=== PATIENT | male | born 1985 | race American Indian/Alaskan Native ===

== ENCOUNTER 2016-05-06 13:20 | Emergency (ER) | payer BC ==
[2016-05-06 13:54] VITALS: BP 105/68
[2016-05-06] MEDS ORDERED: BOOSTRIX IM ONE (14:53)
[2016-05-06] MEDS ORDERED: BACTRIM DS PO ONE (14:54)
[2016-05-06] MEDS ORDERED: KEFLEX PO ONE (14:54)
[2016-05-06] MEDS ORDERED: NORCO 5/325 PO ONE (14:54)
[2016-05-06] MEDS ORDERED: TRIPLE ANTIBIOTIC TP ONE (14:54)
--- NOTE | 2016-05-06 14:58 | Emergency Department Report ---
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 pt states he was cut by metal. PT states his finger has not stopped bleeding. PT also c/o increase in pain and swelling. MD Complaint: other (finger injury ) Onset/Timin -: Sudden, days(s) Time: 20:00 Location: right (index finger ) -: Yes arthralgia, No fever Severity scale (0 -10): 10 Quality: sharp, constant Worsens with: palpation, other (movement) Associated Symptoms: denies other symptoms - Related Data Allergies Allergy/AdvReac Type Severity Reaction Status Date / Time No Known Allergies Allergy Unverified 05/06/16 13:48 ED Review of Systems ROS: Stated complaint: FINGER LAC Other details as noted in HPI Comment: All other systems reviewed and negative Musculoskeletal: as per HPI, joint swelling Skin: as per HPI, change in color (erythema ), other (laceration ) ED Past Medical Hx - Past Medical History Hx Hypertension: No Hx Diabetes: No Additional medical history: Back Pain - Surgical History Past Surgical History?: No - Social History Smoking Status: Current Every Day Smoker Substance Use Type: None ED Physical Exam - General Limitations: No Limitations General appearance: alert, in no apparent distress - Head Head exam: Present: atraumatic, normocephalic - Eye Eye exam: Present: normal appearance. Absent: conjunctival injection - ENT ENT exam: Present: normal exam - Neck Neck exam: Present: normal inspection, full ROM - Respiratory Respiratory exam: Absent: respiratory distress - Cardiovascular Cardiovascular Exam: Present: regular rate, normal rhythm - Extremities Exam Extremities exam: Present: full ROM, tenderness, normal capillary refill, joint swelling - Expanded Upper Extremity Exam Right General: Present: laceration (small 1 cm laceration over PIP joint on the R index finger ). Absent: nail injury (#) Hand Wrist exam: Present: swelling (to R index finger. ), laceration, erythema, other (pt reports pain with active rom and is refusing to move finger. pt has pain with passive rom. no crepitus noted ). Absent: ecchymosis, deformity, subungual hematoma Vascular: Present: normal capillary refill - Back Exam Back exam: Present: normal inspection, full ROM - Neurological Exam Neurological exam: Present: alert, oriented X3 - Psychiatric Psychiatric exam: Present: normal affect, normal mood - Skin Skin exam: Present: warm, dry, erythema ED Course Vital Signs 05/06/16 13:48 Temperature 98.2 F Pulse Rate 65 Respiratory 16 Rate Blood Pressure 105/68 O2 Sat by Pulse 98 Oximetry - Reevaluation(s) Reevaluation #1: 05/06/16 15:01 PT aware of plan of care. PT aware due to time since injury and localized erythema and swelling, no laceration repair will be done in the ED. Reevaluation #2: 05/06/16 16:47 PT aware of XR result. No questions at this time. pt given strict return precautions. - Pulse Oximetry Interpretation Digit-Finger Initial Pulse Oximetry Readin Actions Taken: none ED Medical Decision Making - Radiology Data Radiology results: image reviewed interpreted by me: finger no fb, nap - Differential Diagnosis celluitis, fb Critical care attestation.: If time is entered above; I have spent that time in minutes in the direct care of this critically ill patient, excluding procedure time. ED Disposition Clinical Impression: Need for [id number] (Tdap) vaccine Finger laceration with complication Qualifiers: Encounter type: initial encounter Qualified Code(s): S61.219A - Laceration without foreign body of unspecified finger without damage to nail, initial encounter Disposition: DISCHARGED TO HOME OR SELFCARE Is pt being admited?: No Does the pt Need Aspirin: No Condition: Stable Instructions: Cellulitis (ED), Laceration (ED), Finger Laceration (ED) Additional Instructions: No driving or ETOH after narcotic pain medication Follow up with PCP or ED in 2 days for wound recheck Return to the ED sooner if fevers, chills, nausea, vomiting or you are unable to move your R index finger Referrals: PRIMARY CARE, [Primary Care Provider] - 3-5 Days Forms: Work/School Release Form(ED) Time of Disposition: 16:50
--- NOTE | 2016-05-07 08:00 | XRay Report ---
RIGHT FINGERS, 3 VIEWS: History: Second finger injury, laceration. Findings: Soft tissue swelling and possible laceration is identified at the level of the PIP joint of the index finger. No acute osseous abnormality, joint pathology or radiopaque foreign body is detected on x-ray. Impression: Soft tissue injury to the index finger.
== END 2016-05-06 17:28 | disposition home or self-care (01) ==
LOC: ED 13:20
DX: S61.210A Laceration without foreign body of right index finger without damage to nail, initial encounter (principal); F17.200 Nicotine dependence, unspecified, uncomplicated; W45.8XXA Other foreign body or object entering through skin, initial encounter; Y93.89 Activity, other specified; Y99.8 Other external cause status; Y92.89 Other specified places as the place of occurrence of the external cause
CPT/HCPCS: 90471; 90715; A6250